=== PATIENT | male | born 1970 | race Two or more races ===

== ENCOUNTER 2023-06-01 12:09 | Emergency (ER) | payer SELFPAY ==
[~2023-06-01] VITALS: Ht 177.8 cm; Wt 110.0 kg
[2023-06-01] MEDS ORDERED: ETOMIDATE (2MG/ML) 20ML VIAL IV ONE (12:13)
[2023-06-01] MEDS ORDERED: SUCCINYLCHOLINE CHLORIDE 20 MG/ML 10ML VIAL IV ONE (12:16)
[2023-06-01] MEDS ORDERED: ROCURONIUM 10MG/ML 10ML VIAL IV ONE (12:17)
[2023-06-01 12:31] VITALS: PULSE 98; RESP 97; O2SAT 82
[2023-06-01] MEDS ORDERED: NOREPINEPHRINE 8 MG/250ML KIT 0 ML IV ONE (12:34)
[2023-06-01 12:45] VITALS: BP 148/88; PULSE 77; RESP 12; O2SAT 89
[2023-06-01 12:54] VITALS: TEMP 90.7
== END 2023-06-01 13:11 | disposition short-term general hospital (02) ==
LOC: ER 12:09 → EDBD 12:09 → ER 13:11
DX: S02.0XXA Fracture of vault of skull, initial encounter for closed fracture (principal); S06.300A Unspecified focal traumatic brain injury without loss of consciousness, initial encounter; S07.0XXA Crushing injury of face, initial encounter; S09.8XXA Other specified injuries of head, initial encounter; J96.90 Respiratory failure, unspecified, unspecified whether with hypoxia or hypercapnia; W20.8XXA Other cause of strike by thrown, projected or falling object, initial encounter; Y93.89 Activity, other specified; Y92.096 Garden or yard of other non-institutional residence as the place of occurrence of the external cause; Y99.8 Other external cause status
CPT/HCPCS: 31500; 36430; 86850; 86900; 86901; 86920; 99291; J0330; P9016